=== PATIENT | male | born 1965 | race Caucasian/White ===

== ENCOUNTER 2018-04-19 11:26 | Emergency (ER) | payer OTHER ==
[2018-04-19] MEDS ORDERED: Sodium Chloride 0.9% 10 ML Syringe FLUSH PRN (12:09)
[2018-04-19] MEDS ORDERED: Ketorolac 30 MG/ML SDV IVPUSH ONE ×2 (12:09→16:42)
--- NOTE | 2018-04-19 12:17 | EDM.PDOC ---
ED HPI GENERAL MEDICAL PROBLEM - General Chief Complaint: Back Pain or Injury Stated Complaint: BACK PAIN Time Seen by Provider: 04/19/18 11:44 Source of Information: Reports: Patient, Old Records History Limitations: Reports: No Limitations - History of Present Illness INITIAL COMMENTS - FREE TEXT/NARRATIVE: 52-year-old male presents for evaluation and treatment of low back pain. Patient reports he has chronic low back pain since 1998. He had back surgery in [address] White in [place]. Reports a fusion of L4-L5. He has been having chronic back pain since the surgery. He gets quarterly injections with pain management at [facility] in [place]. Last injection was in February 2018. He is scheduled to have his next injection on May 20. The affected starting to wear off and he injections are not lasting as long as they used to. In addition to the injections he does get Charlotte 5- 325 from pain management and Flexeril 10 mg. He takes both of these medications twice a day. He states he did run out of his Charlotte last night. He did contact his pain management team today regarding this. His last dose of Flexeril was last night and spasticity Charlotte was last night. Today he is taking 6 Advil on 3 Tylenol. Patient reports that yesterday he was bending down to pick something up and when he had sudden worsening of his low back pain. States the pain is primarily located on the right side. He has numbness and tingling into both legs. He states that the pain is radiating into both legs. Describes the pain as a throbbing sensation. With laying flat the pain as a 6 or 7 out of 10. With movement states that the pain "skyrockets". Normally has pain and discomfort into the right leg but today the left leg is significantly worse. He states he cannot walk or stand as this makes the pain much worse. He feels nauseous to pain. No urinary symptoms including no dysuria, urinary incontinence or stool incontinence. He has not had any fevers or chills. Last MRI was in 2015. Primary care provider Reji is Dr. Hassan. Lower Back Pain Score (Numeric/FACES): 10 - Related Data Allergies Allergy/AdvReac Type Severity Reaction Status Date / Time No Known Allergies Allergy Verified 04/19/18 11:36 Home Meds: Home Meds Acetaminophen/HYDROcodone [[place] 325-5 MG] 1 tab PO Q4H PRN #20 tablet 04/19/18 [Rx] Cyclobenzaprine [Flexeril] 10 mg PO BID PRN 04/19/18 [History] Cyclobenzaprine [Flexeril] 10 mg PO TID PRN #20 tab 04/19/18 [Rx] Hydrocodone/Acetaminophen [Hydrocodon-Acetaminophen 5-325] 1 tab PO Q12H PRN 09/26 [History] Losartan [Cozaar] 50 mg PO DAILY 04/19/18 [History] Simvastatin [Zocor] 20 mg PO BEDTIME 04/19/18 [History] amLODIPine [Norvasc] 2.5 mg PO DAILY 04/19/18 [History] metFORMIN [Glucophage XR] 1,500 mg PO DAILY 04/19/18 [History] Past Medical History Cardiovascular History: Reports: High Cholesterol, Hypertension Musculoskeletal History: Reports: Back Pain, Chronic Endocrine/Metabolic History: Reports: Diabetes, Type II - Past Surgical History Musculoskeletal Surgical History: Reports: Other (See Below) Other Musculoskeletal Surgeries/Procedures:: back surgery Social & Family History - Tobacco Use Smoking Status *Q: Never Smoker Second Hand Smoke Exposure: No - Caffeine Use Caffeine Use: Reports: Coffee - Recreational Drug Use Recreational Drug Use: No ED ROS GENERAL - Review of Systems Review Of Systems: See Below Constitutional: Denies: Fever, Chills GI/Abdominal: Reports: Nausea. Denies: Stool Incontinence, Vomiting : Denies: Incontinence Musculoskeletal: Reports: Back Pain (mid to low back), Leg Pain (back pain into legs; L>>R) Neurological: Reports: Numbness (into legs ), Tingling (into legs), Difficulty Walking, Other (no saddle anesthesia) ED EXAM,LOWER BACK PAIN/INJURY - Physical Exam Exam: See Below Exam Limited By: No Limitations General Appearance: Alert, WD/WN, Moderate Distress Ears: Normal External Exam Nose: Normal Inspection Throat/Mouth: Normal Inspection, Normal Lips, Normal Voice, No Airway Compromise Neck: Normal Inspection, Non-Tender, Full Range of Motion Respiratory/Chest: No Respiratory Distress, Lungs Clear, Normal Breath Sounds Cardiovascular: Normal Peripheral Pulses, Regular Rate, Rhythm, No Murmur Back Exam: Normal Inspection, Muscle Spasm (right paraspinal muscles T8-L4 area) , Vertebral Tenderness (approximately L2-L4), Other (ROM testing deferred due to pain; scal to the lumbar spine around L3-L5 from previous surgery) Extremities: Normal Inspection Neurological: Alert, Normal Mood/Affect, Normal Dorsiflexion, Normal Plantar Flexion, Straight Leg Raise (L), Straight Leg Raise (R) Psychiatric: Normal Affect, Normal Mood Skin Exam: Warm, Dry, Normal Color Course - Vital Signs Last Recorded V/S: Last Vital Signs Temp 97.2 F 04/19/18 11:33 Pulse 93 04/19/18 18:15 Resp 17 04/19/18 18:15 BP 144/103 H 04/19/18 18:15 Pulse Ox 96 04/19/18 18:15 - Orders/Labs/Meds Meds: Medications Discontinued Medications Generic Name Dose Route Start Last Admin Trade Name Freq PRN Reason Stop Dose Admin Diazepam 5 mg 04/19/18 15:42 04/19/18 16:02 Valium IVPUSH 04/19/18 15:43 5 mg ONETIME ONE Administration Hydromorphone HCl 0.5 mg 04/19/18 12:59 04/19/18 13:07 Dilaudid IVPUSH 04/19/18 13:00 0.5 mg ONETIME ONE Administration Hydromorphone HCl 0.5 mg 04/19/18 14:48 04/19/18 14:58 Dilaudid IVPUSH 04/19/18 14:49 0.5 mg ONETIME ONE Administration Ketorolac Tromethamine 30 mg 04/19/18 12:09 04/19/18 12:17 Toradol IVPUSH 04/19/18 12:10 30 mg ONETIME ONE Administration Ketorolac Tromethamine 30 mg 04/19/18 16:42 04/19/18 16:51 Toradol IVPUSH 04/19/18 16:43 30 mg ONETIME ONE Administration Methylprednisolone Sodium Succinate 125 mg 04/19/18 12:59 04/19/18 13:07 Solu-Medrol IVPUSH 04/19/18 13:00 125 mg ONETIME ONE Administration Sodium Chloride 10 ml 04/19/18 12:09 04/19/18 12:18 Saline Flush FLUSH 10 ml ASDIRECTED PRN Administration Keep Vein Open - Radiology Interpretation Free Text/Narrative:: CT lumbar spine Technique: Multiple axial sections were obtained from above the T11-T12 disc inferiorly to the L5-S1 disc. Reconstructed coronal and sagittal images were obtained. Comparison: Prior MRI lumbar spine study of 02/05/11. Findings: Previous surgery and disc fusion is noted at L4-L5. Transpedical screws are seen within L4 and L5. Mild disc space narrowing is noted at L5-S1. Minimal circumferential disc bulge is noted at L3-L4. No central canal stenosis or neural foraminal stenosis is seen. No disc herniation is identified. No acute fracture is seen. Impression: 1. Previous surgery and slight degenerative change. - Re-Assessments/Exams Free Text/Narrative Re-Assessment/Exam: 04/19/18 13:02 Discussed pain management with the patient. Initally only walked toradol. Checked on the patient and he continues to have pain. Dilaudid ordered. 04/19/18 15:47 The patient had been discharge as he was doing much better. When he got up to go to the bathroom prior to his discharge reports he reported that his back pain exacerbated again. Nursing staff notified me. At that point he started his IV in place I ordered another 0.5 mg IV Dilaudid. He continues to have pain at this point. I decided iv Valium for muscle relaxation. Plan will be to get a CT of his lumbar spine as his back pain is greatly worsening. He continues to have back pain may consider admission for pain control. 04/19/18 16:30 Patient did the best with toradol for pain. We are nearing the 6 hour iglesia since last dose. Will give a second IV dose of toradol. Patient informed of CT results. 04/19/18 17:31 Patient feels better and was standing at bedside. He would like to go home. Encouraged him to return if his symptoms change or worsen. Will write for toradol 10mg PO tabs #20 1 q6hrs in addition to Rx written earlier. Discharge instructions as documented. Departure - Departure Time of Disposition: 14:23 Disposition: Home, Self-Care 01 Condition: Fair Clinical Impression: Sciatica, Low back pain - Discharge Information Prescriptions: Acetaminophen/HYDROcodone [[place] 325-5 MG] 1 tab PO Q4H PRN #20 tablet PRN Reason: Pain Cyclobenzaprine [Flexeril] 10 mg PO TID PRN #20 tab PRN Reason: Muscle Spasm Instructions: Sciatica, [id number] Referrals: Hira Mueller MD [Primary Care Provider] - Pia Jurado NP [Ordering Only Provider] - Forms: ED Department Discharge Additional Instructions: you were given medication in the ER that can affect your ability to drive and operate machinery. Do not drive or operate machinery within 12 hours of taking narcotic pain medication. Rx for ketoprofen 10% lidocaine 5% #30 grams written Rx for toradol 10mg PO tabs 1 tba q6hrs #15 written increase your flexeril to tid norco 1-2 tabs PO every 4-6 hours prn pain do not take NSAIDs, ibuprofen, aleve, etc while taking the toradol. we do recommend that you contact your pain clinic to let them know you were in the ER for an acute exacerbation of your pain. We will send the note from your ER visit today to your pain doctor. recommend moist heat to the back 3-4 times a day as needed. recommend a rice sack or a water bottle with warm/hot water. He also try topical products such as icyhot or BenGay. Rest but do not be completely immobile. Activity as tolerated. Activity is good for improving back pain. please return to the ER should you symptoms change or worsen.
[2018-04-19] MEDS ORDERED: methylPREDNISolone Sodium Succinate 125 MG/2 ML SDV IVPUSH ONE (12:59)
[2018-04-19] MEDS ORDERED: HYDROmorphone 0.5 MG/0.5 ML SYRINGE IVPUSH ONE ×2 (12:59→14:48)
--- NOTE | 2018-04-19 16:08 | CT ---
CT lumbar spine Technique: Multiple axial sections were obtained from above the T11-T12 disc inferiorly to the L5-S1 disc. Reconstructed coronal and sagittal images were obtained. Comparison: Prior MRI lumbar spine study of 02/05/11. Findings: Previous surgery and disc fusion is noted at L4-L5. Transpedical screws are seen within L4 and L5. Mild disc space narrowing is noted at L5-S1. Minimal circumferential disc bulge is noted at L3-L4. No central canal stenosis or neural foraminal stenosis is seen. No disc herniation is identified. No acute fracture is seen. Impression: 1. Previous surgery and slight degenerative change. Diagnostic code #2
== END 2018-04-19 18:17 | disposition home or self-care (01) ==
LOC: JD.ED 11:26
DX: M54.41 Lumbago with sciatica, right side (principal); I10 Essential (primary) hypertension; E78.00 Pure hypercholesterolemia, unspecified; E11.9 Type 2 diabetes mellitus without complications; Z79.899 Other long term (current) drug therapy; Z79.84 Long term (current) use of oral hypoglycemic drugs
CPT/HCPCS: 72131; 96374; 96375; 96376; 99284; J1170; J1885; J2930; J3360; J7050

== ENCOUNTER 2019-12-12 08:06 | Emergency (ER) | payer OTHER ==
--- NOTE | 2019-12-12 08:50 | EDM.PDOC ---
ED HPI GENERAL MEDICAL PROBLEM - General Chief Complaint: Gastrointestinal Problem Stated Complaint: CHEST PAIN ABDOMINAL PAIN Time Seen by Provider: 12/12/19 08:44 - History of Present Illness INITIAL COMMENTS - FREE TEXT/NARRATIVE: 53-year-old male presents the emergency room with abdominal and chest pain. Patient describes his pain as starting in the mid epigastric area and radiating to his left scapula. It is a pressure fullness sensation that radiates back. Most of his discomfort is in the epigastric and left upper quadrant of the abdomen. Patient has no history of coronary artery disease no significant family history of coronary artery disease. Patient was in [place] when this pain started he was vacationing. The pain is been fairly consistent, the patient is concerned is not improving. Left Chest Pain Score (Numeric/FACES): 5 Epigastric Pain Score (Numeric/FACES): 8 - Related Data Allergies Allergy/AdvReac Type Severity Reaction Status Date / Time No Known Allergies Allergy Verified 12/12/19 08:16 Home Meds: Home Meds Acetaminophen/HYDROcodone [[place] 325-5 MG] 1 tab PO Q4H PRN #20 tablet 04/19/18 [Rx] Cyclobenzaprine [Flexeril] 10 mg PO BID PRN 04/19/18 [History] Losartan [Cozaar] 50 mg PO DAILY 04/19/18 [History] Simvastatin [Zocor] 20 mg PO BEDTIME 04/19/18 [History] amLODIPine [Norvasc] 2.5 mg PO DAILY 04/19/18 [History] metFORMIN [Glucophage XR] 1,500 mg PO DAILY 04/19/18 [History] Omeprazole Magnesium 40 mg PO ASDIRECTED #60 capsule. 12/12/19 [Rx] Sucralfate [Carafate] 1 gm PO QIDACANDBED #24 cup 12/12/19 [Rx] traMADol [Ultram] 50 mg PO Q6HR 12/12/19 [History] Past Medical History Cardiovascular History: Reports: High Cholesterol, Hypertension, Other (See Below) Other Cardiovascular History: Thinning of arterial wall. Musculoskeletal History: Reports: Back Pain, Chronic Endocrine/Metabolic History: Reports: Diabetes, Type II - Infectious Disease History Infectious Disease History: Reports: Chicken Pox - Past Surgical History GI Surgical History: Reports: Hernia Repair/Other Musculoskeletal Surgical History: Reports: Other (See Below) Other Musculoskeletal Surgeries/Procedures:: back surgery L4-L5 fusion Social & Family History - Tobacco Use Smoking Status *Q: Never Smoker - Caffeine Use Caffeine Use: Reports: Coffee - Recreational Drug Use Recreational Drug Use: No ED ROS GENERAL - Review of Systems Review Of Systems: See Below Constitutional: Reports: No Symptoms HEENT: Reports: No Symptoms Respiratory: Reports: No Symptoms Cardiovascular: Reports: Chest Pain (Mostly pain radiating from his abdomen) GI/Abdominal: Reports: Abdominal Pain. Denies: Constipation, Diarrhea, Nausea, Vomiting Skin: Reports: No Symptoms Neurological: Reports: No Symptoms ED EXAM, GENERAL - Physical Exam Exam: See Below Exam Limited By: No Limitations General Appearance: Alert, No Apparent Distress Head: Atraumatic, Normocephalic Neck: Normal Inspection Respiratory/Chest: No Respiratory Distress, Lungs Clear, Normal Breath Sounds Cardiovascular: Regular Rate, Rhythm, No Edema, No Murmur GI/Abdominal: Normal Bowel Sounds, Soft, Other (Significant tenderness in the midepigastric area and to a lesser degree left upper quadrant. He has no guarding rigidity or rebound noted.) Back Exam: Normal Inspection. No: CVA Tenderness (L), CVA Tenderness (R) Extremities: Normal Inspection Neurological: Alert, Oriented, Normal Cognition Course - Vital Signs Last Recorded V/S: Last Vital Signs Temp 35.8 C 12/12/19 08:17 Pulse 90 12/12/19 08:17 Resp 20 12/12/19 08:17 BP 151/107 H 12/12/19 08:17 Pulse Ox 96 12/12/19 08:17 - Orders/Labs/Meds Orders: Active Orders 24 hr Category Date Time Status EKG Documentation Completion [RC] STAT Care 12/12/19 08:50 Active Labs: Laboratory Tests 12/12/19 12/12/19 Range/Units 09:09 09:09 WBC 7.45 (4.23-9.07) K/mm3 RBC 5.25 (4.63-6.08) M/mm3 Hgb 16.1 (13.7-17.5) gm/dl Hct 48.0 (40.1-51.0) % MCV 91.4 D (79.0-92.2) fl MCH 30.7 (25.7-32.2) pg MCHC 33.5 (32.2-35.5) g/dl RDW Std Deviation 47.1 H (35.1-43.9) fL Plt Count 229 (163-337) K/mm3 MPV 9.5 (9.4-12.3) fl Neut % (Auto) 72.8 H (34.0-67.9) % Lymph % (Auto) 16.4 L (21.8-53.1) % [place] % (Auto) 9.9 (5.3-12.2) % Eos % (Auto) 0.3 L (0.8-7.0) Baso % (Auto) 0.3 (0.1-1.2) % Neut # (Auto) 5.43 H (1.78-5.38) K/mm3 Lymph # (Auto) 1.22 L (1.32-3.57) K/mm3 [place] # (Auto) 0.74 (0.30-0.82) K/mm3 Eos # (Auto) 0.02 L (0.04-0.54) K/mm3 Baso # (Auto) 0.02 (0.01-0.08) K/mm3 Sodium 141 (136-145) mEq/L Potassium 4.5 (3.5-5.1) mEq/L Chloride 105 (98-107) mEq/L Carbon Dioxide 26 (21-32) mEq/L Anion Gap 14.5 (5-15) BUN 11 (7-18) mg/dL Creatinine 1.1 (0.7-1.3) mg/dL Est Cr Clr Drug Dosing 85.75 mL/min Estimated GFR (MDRD) > 60 (>60) mL/min BUN/Creatinine Ratio 10.0 L (14-18) Glucose 112 H (74-106) mg/dL Calcium 9.5 (8.5-10.1) mg/dL Total Bilirubin 0.5 (0.2-1.0) mg/dL AST 26 (15-37) U/L ALT 69 H (16-63) U/L Alkaline Phosphatase 41 L (46-116) U/L Troponin I < 0.017 (0.00-0.056) ng/mL Total Protein 7.8 (6.4-8.2) g/dl Albumin 4.2 (3.4-5.0) g/dl Globulin 3.6 gm/dL Albumin/Globulin Ratio 1.2 (1-2) Lipase 108 (73-393) U/L Meds: Medications Discontinued Medications Generic Name Dose Route Start Last Admin Trade Name Edward PRN Reason Stop Dose Admin Al Hydroxide/Mg Hydroxide 30 0 ml 12/12/19 08:52 12/12/19 09:01 ml/ Lidocaine HCl 15 ml PO 12/12/19 08:53 45 ml ONETIME ONE Administration Pantoprazole Sodium 40 mg 12/12/19 11:56 12/12/19 12:04 Protonix PO 12/12/19 11:57 40 mg NOW STA Administration Sucralfate 1 gm 12/12/19 10:29 12/12/19 10:55 Carafate PO 12/12/19 10:30 1 gm ONETIME ONE Administration - Re-Assessments/Exams Free Text/Narrative Re-Assessment/Exam: 12/12/19 12:10 The patient has had an 8-day history of epigastric and left upper abdominal discomfort. At times this radiates into the left shoulder blade. The patient drank more beer than usual while he was down in [place] which is where he was at when this pain started. Laboratory evaluation is for the most part unremarkable. His troponin is negative EKG shows no acute changes certainly no ischemia his troponin was negative. He was given a GI cocktail and did great after that this was followed up with some Carafate and he was given a PPI to take 2 hours after the Carafate. The patient will be discharged on a short course of Carafate and PPI treatment for the long-term with instructions to follow-up with his regular physician in a week or so. Departure - Departure Time of Disposition: 12:13 Disposition: DC/Tfer to Hospice - Home 50 Clinical Impression: Gastritis - Discharge Information Prescriptions: Omeprazole Magnesium 40 mg PO ASDIRECTED #60 capsule. Sucralfate [Carafate] 1 gm PO QIDACANDBED #24 cup Referrals: Hira Mueller MD [Primary Care Provider] - Forms: ED Department Discharge Additional Instructions: Return to the emergency room with any questions problems or worsening symptoms. Take your medications as directed. The Carafate intake for 6 days take just before your morning midday and evening meals and again at bedtime take your other medications at least 1 hour before the Carafate or 2 hours after. Follow-up with Dr. Carlin in 1 week. Sepsis Event Note - Evaluation Sepsis Screening Result: No Definite Risk - Focused Exam Date Exam was Performed: 12/12/19 Time Exam was Performed: 22:14 - My Orders Last 24 Hours: My Active Orders 12/12/19 08:50 EKG Documentation Completion [RC] STAT - Assessment/Plan Last 24 Hours: My Active Orders 12/12/19 08:50 EKG Documentation Completion [RC] STAT
[2019-12-12] MEDS ORDERED: Alum Hydrox/Mag Hydrox/Simeth 30 ML, Lidocaine 2% 15 ML PO ONE ×2 (08:52)
[2019-12-12] MEDS ORDERED: Sucralfate Suspension 1 GM/10 ML Cup PO ONE (10:29)
[2019-12-12] MEDS: Pantoprazole 40 MG Tab.CR PO STA ×2 (12:01→12:04)
== END 2019-12-12 12:32 | disposition hospice, home (50) ==
LOC: JD.ED 08:06
DX: K29.70 Gastritis, unspecified, without bleeding (principal); E78.00 Pure hypercholesterolemia, unspecified; I10 Essential (primary) hypertension; E11.9 Type 2 diabetes mellitus without complications; Z79.84 Long term (current) use of oral hypoglycemic drugs; Z79.899 Other long term (current) drug therapy
CPT/HCPCS: 36415; 80053; 83690; 84484; 85025; 93005; 99285; A9270; 99283

== ENCOUNTER 2024-04-07 10:18 | Emergency (ER) | payer OTHER ==
[2024-04-07 11:31] LABS: BASOPHILS PERCENT AUTO 0.5 % (0.0-1.0); EOSINOPHILS ABSOLUTE AUTO 0.1 K/mm3 (0.0-0.4); EOSINOPHILS PERCENT AUTO 0.8 % (0.0-6.0); HEMATOCRIT 44.3 % (42.0-52.0); HEMOGLOBIN 14.9 gm/dl (14.0-18.0); IMMATURE GRAN ABSOLUTE AUTO 0.02 K/mm3 (0.00-0.05); IMMATURE GRAN PERCENT AUTO 0.3 % (0.0-0.4); LYMPHOCYTES ABSOLUTE AUTO 1.4 K/mm3 (1.0-4.8); LYMPHOCYTES PERCENT AUTO 21.8 % (24.0-44.0); MEAN CORPUSCULAR HEMOGLOBIN 30.5 pg (28.0-32.0); MEAN CORPUSCULAR HGB CONC 33.6 g/dl (32.0-36.0); MEAN CORPUSCULAR VOLUME 90.8 fl (83.0-99.0); MEAN PLATELET VOLUME 9.4 fl (9.4-12.4); MONOCYTES ABSOLUTE AUTO 0.6 K/mm3 (0.0-0.8); MONOCYTES PERCENT AUTO 9.8 % (0.0-8.0); NEUTROPHILS ABSOLUTE AUTO 4.4 K/mm3 (1.8-7.7); NEUTROPHILS PERCENT AUTO 66.8 % (41.0-71.0); PLATELET COUNT,PLT 238 K/mm3 (150-400); RED BLOOD CELL COUNT 4.88 M/mm3 (4.52-5.90); WHITE BLOOD CELL COUNT,WBC 6.52 K/mm3 (3.9-11.3)
[2024-04-07 11:32] LABS: APPEARANCE,URINE CLEAR (Clear); BILIRUBIN,URINE NEGATIVE (Negative); COLOR,URINE YELLOW (Yellow); GLUCOSE,URINE NEGATIVE (Negative); KETONES,URINE NEGATIVE (Negative); LEUKOCYTE ESTERASE,URINE 1+ (Negative); NITRITE,URINE NEGATIVE (Negative); OCCULT BLOOD,URINE 2+ (Negative); PROTEIN,URINE 2+ (Negative); UROBILINOGEN,URINE 0.2 (0.2-1.0)
[2024-04-07] MEDS: Sodium Chloride 0.9% 1,000 ML IV ONE (11:55)
[2024-04-07] MEDS: Ondansetron 4 MG/2 ML SDV IVPUSH ONE (11:56)
[2024-04-07 12:08] LABS: A/G RATIO 1.1 (1-2); ANION GAP 13.7 (5-15); BILIRUBIN TOTAL 0.3 mg/dL (0.2-1.0); BUN/CREATININE RATIO 13.1 (14-18); CALCIUM 9.2 mg/dL (8.5-10.1); CREATININE 1.3 mg/dL (0.7-1.3); EST CRCL DRUG DOSING (CG) 70.26 mL/min; POTASSIUM,K 4.7 mEq/L (3.5-5.1); PROTEIN TOTAL,TP 7.6 g/dl (6.4-8.2)
[2024-04-07 13:49] LABS: WBC,URINE 0-5 /hpf (0-5)
[2024-04-07 13:50] LABS: BACTERIA,URINE FEW /hpf (FEW); EPITHELIAL CELLS,URINE 0-5 /hpf (0-5); MUCUS,URINE NOT SEEN /hpf (FEW)
== END 2024-04-07 15:10 | disposition home or self-care (01) ==
LOC: JD.ED 10:18
DX: R42 Dizziness and giddiness (principal); I10 Essential (primary) hypertension; E78.00 Pure hypercholesterolemia, unspecified; E11.9 Type 2 diabetes mellitus without complications; Z79.84 Long term (current) use of oral hypoglycemic drugs; Z79.899 Other long term (current) drug therapy
CPT/HCPCS: 36415; 80053; 81001; 84484; 85025; 87086; 93005; 96361; 96374; 99284; J2405; J7030; 93010